=== PATIENT | male | born 1995 | race Caucasian/White ===

== ENCOUNTER 2017-05-06 18:31 | Emergency (ER) | payer MEDICARE, MEDICAID ==
[~2017-05-06] VITALS: Ht 188 cm; Wt 87.5 kg
[~2017-05-06 18:31] MED LIST: ACCUNEB SO1.25 MG/1 INH; ACETAMINOPHEN-1 EAC1 PO; ADVAIR 100-501 EACH INH; ADVAIR 250-501 EACH INH; ADVAIR HFA 115-12 G1 INH; ADVAIR HFA 230M1 AER IH; ADVAIR HFA 230M1 AER INH; ADVAIR HFA 230M12 GM INH; ADVAIR HFA 230M12 GM PO; ADVAIR HFA115 MCG/21 INH; ADVAIR INHALER; ADVAIRDISKUS; ALBUTEROL NEB; ALBUTEROL2.5 MG/0.1 INH; ALBUTEROL2.5 MG/0.5 INH; ALBUTEROL2.5 MG/3 M IH; ALBUTEROL2.5 MG/3 M INH; ALBUTEROL2.5 MG/31 INH; AMOXICILLIN 50500 MG PO; AMOXIL 875 MG875 M1 PO; AUGMENTIN 875875 MG PO; AZITHROMYCIN 2250 MG PO; CENTANY30 GM TP; COMBIVENT INH; DEPAKOTE125 MG PO; DUONEB 2.5-0.5 M3 ML INH; FLEXERIL PO; GENTAMICIN SU3 MG/ML OPHTHALMIC; HYDROCODON-ACE1 EACH PO; HYDROCODONE-APA1 TA1 PO; IBUPROFEN 200200 M1 PO; IBUPROFEN 800800 M1 PO; IBUPROFEN 800800 MG PO; MEDROLDOSEPACK PO; MOBIC7.5 MG PO; NOHOMEMEDICATIONS; ONDANSETRON HCL4 M2 PO; PENICILLIN VK500 M1 PO; PREDNISONE; PREDNISONE 10 M10 M1; PREDNISONE 10 M10 M1 PO; PREDNISONE 10 M10 MG PO; PREDNISONE 20 M20 M1 PO; PREDNISONE 20 M20 MG PO; PREDNISONE50 MG PO; PROAIR HFA8.5 GM IH; PROAIR HFA8.5 GM INH; PROAIR HFA8.5 GM PO; PROMETHAZINE-D120 ML PO; PROTONIX40 M1 PO; PROVENTIL; PROVENTIL HFA6.7 G1 INH; QVAR HFA 880 MCG/UN1 INH; RISPERDAL0.25 MG PO; SINGULAIR 10 MG10 M1 PO; VANTIN PO; VENTOLIN HFA 1818 GM INH; VENTOLIN HFA INH8 GM IH; VENTOLIN HFA INH8 GM PO; ZOFRAN ODT4 MG PO; ZPAK PO
[2017-05-06] MEDS ORDERED: ALBUTEROL2.5 MG/0.5 INH (18:46)
[2017-05-06] MEDS ORDERED: PREDNISONE 20 M20 MG PO (18:46)
[2017-05-06 19:01] VITALS: BP 124/83
== END 2017-05-06 19:02 | disposition home or self-care (01) ==
LOC: M.ERS 18:31
DX: J45.901 Unspecified asthma with (acute) exacerbation (principal); F31.9 Bipolar disorder, unspecified; F90.9 Attention-deficit hyperactivity disorder, unspecified type; G40.909 Epilepsy, unspecified, not intractable, without status epilepticus; F17.210 Nicotine dependence, cigarettes, uncomplicated; F10.99 Alcohol use, unspecified with unspecified alcohol-induced disorder; Z87.442 Personal history of urinary calculi

== ENCOUNTER 2017-06-26 17:25 | Emergency (ER) | payer MEDICARE, MEDICAID ==
[~2017-06-26] VITALS: Ht 188 cm; Wt 87.5 kg
[2017-06-26] MEDS ORDERED: AMOXICILLIN 50500 MG PO (18:22)
[2017-06-26] MEDS ORDERED: ADVAIR HFA 230M12 GM INH (18:22)
[2017-06-26] MEDS ORDERED: VENTOLIN HFA 1818 GM INH (18:22)
[2017-06-26 18:40] VITALS: BP 139/80
== END 2017-06-26 18:41 | disposition home or self-care (01) ==
LOC: M.ERS 17:25
DX: J02.9 Acute pharyngitis, unspecified (principal); J45.901 Unspecified asthma with (acute) exacerbation; F17.210 Nicotine dependence, cigarettes, uncomplicated; F31.9 Bipolar disorder, unspecified; F90.9 Attention-deficit hyperactivity disorder, unspecified type; F10.21 Alcohol dependence, in remission; Z87.442 Personal history of urinary calculi

== ENCOUNTER 2017-08-10 12:54 | Emergency (ER) | payer MEDICARE, MEDICAID ==
[~2017-08-10] VITALS: Ht 188 cm; Wt 85.7 kg
[2017-08-10] MEDS ORDERED: PREDNISONE 20 M20 MG PO (13:47)
[2017-08-10] MEDS ORDERED: ADVAIR HFA 230M12 GM INH (13:47)
[2017-08-10] MEDS ORDERED: VENTOLIN HFA 1818 GM INH ×2 (13:47→14:09)
[2017-08-10 14:09] LABS: INFLUENZA A ANTIGEN None Detected (None Detect); INFLUENZA B ANTIGEN None Detected (None Detect)
[2017-08-10] MEDS ORDERED: ADVAIR HFA 115-12 G1 INH (14:09)
[2017-08-10 14:17] VITALS: BP 127/55
== END 2017-08-10 14:18 | disposition home or self-care (01) ==
LOC: M.ERS 12:54
PROVIDERS: Nurse Practitioner Psychiatric/Mental Health
DX: J45.901 Unspecified asthma with (acute) exacerbation (principal); F31.9 Bipolar disorder, unspecified; F90.9 Attention-deficit hyperactivity disorder, unspecified type; F17.210 Nicotine dependence, cigarettes, uncomplicated

== ENCOUNTER 2017-10-14 13:05 | Emergency (ER) | payer MEDICARE, MEDICAID ==
[~2017-10-14] VITALS: Ht 188 cm; Wt 88.0 kg
[2017-10-14 14:00] LABS: URINE BILIRUBIN NEGATIVE (Negative); URINE BLOOD NEGATIVE (Negative); URINE CLARITY CLEAR; URINE COLOR YELLOW; URINE GLUCOSE-RANDOM NEGATIVE (Negative); URINE KETONES NEGATIVE (Negative); URINE LEUKOCYTES NEGATIVE (Negative); URINE NITRITE NEGATIVE (Negative); URINE PROTEIN NEGATIVE (Negative); URINE SPECIFIC GRAVITY >= 1.030 (1.005-1.030); URINE UROBILINOGEN 0.2 E.U./dl (0.2-1.0)
[2017-10-14 14:11] LABS: ABSOLUTE BASOPHILS 0.1 thou/uL (0.0-0.2); ABSOLUTE EOSINOPHILS 0.5 thou/uL (0.0-0.7); ABSOLUTE LYMPHOCYTES 1.5 thou/uL (0.8-5.3); ABSOLUTE MONOCYTES 0.7 thou/uL (0.0-1.2); ABSOLUTE NEUTROPHILS 5.9 thou/uL (1.6-8.1); BASOPHILS 0.7 %; HEMATOCRIT 49.4 % (42.0-52.0); HEMOGLOBIN 17.4 gm/dL (14.0-18.0); LYMPHOCYTES 17.5 %; MCH 31.9 pg (26.0-34.0); MCHC 35.1 g/dL (28.0-37.0); MCV 90.7 fL (80.0-100.0); MONOCYTES 7.8 %; MPV 8.1 fl. (7.2-11.1); NUCLEATED RBCS 0 /100WBC; PLATELET COUNT* 226 thou/uL (150-400); RBC 5.44 mil/uL (4.50-6.00); RDW-CV 12.9 % (10.5-14.5); WBC 8.6 thou/uL (4.0-11.0)
[2017-10-14 14:57] LABS: POTASSIUM 4.2 mmol/L (3.5-5.1)
[2017-10-14 14:58] LABS: CALCIUM 8.8 mg/dL (8.5-10.1); CREATININE 0.7 mg/dL (0.6-1.3); TOTAL BILIRUBIN 0.8 mg/dL (<0.1-1.0); TOTAL PROTEIN 6.5 g/dL (6.4-8.2)
[2017-10-14] MEDS ORDERED: ALBUTEROL2.5 MG/31 INH (16:26)
[2017-10-14] MEDS ORDERED: MEDROLDOSEPACK PO (16:26)
[2017-10-14] MEDS ORDERED: VENTOLIN HFA 1818 GM INH (16:26)
[2017-10-14] MEDS ORDERED: ADVAIR HFA 230M12 GM INH (16:26)
[2017-10-14] MEDS ORDERED: BENTYL 20 MG TA20 M1 PO (16:26)
[2017-10-14] MEDS ORDERED: ONDANSETRON HCL4 M2 PO (16:26)
[2017-10-14 16:42] VITALS: BP 128/59
== END 2017-10-14 16:42 | disposition home or self-care (01) ==
LOC: M.ERS 13:05
PROVIDERS: Nurse Practitioner Family
DX: J45.901 Unspecified asthma with (acute) exacerbation (principal); R10.31 Right lower quadrant pain; F31.9 Bipolar disorder, unspecified; F90.9 Attention-deficit hyperactivity disorder, unspecified type; F17.210 Nicotine dependence, cigarettes, uncomplicated

== ENCOUNTER 2017-10-28 16:57 | Emergency (ER) | payer MEDICARE ==
[~2017-10-28] VITALS: Ht 188 cm; Wt 88.0 kg
[~2017-10-28 16:57] MED LIST changes: +BENTYL 20 MG TA20 M1 PO
[2017-10-28 18:05] VITALS: BP 117/55
== END 2017-10-28 18:06 | disposition home or self-care (01) ==
LOC: M.ERS 16:57
DX: J02.9 Acute pharyngitis, unspecified (principal); J45.909 Unspecified asthma, uncomplicated; F31.9 Bipolar disorder, unspecified; F90.9 Attention-deficit hyperactivity disorder, unspecified type; F17.210 Nicotine dependence, cigarettes, uncomplicated; Z87.442 Personal history of urinary calculi

== ENCOUNTER 2018-03-18 11:27 | Emergency (ER) | payer MEDICARE ==
[~2018-03-18] VITALS: Ht 188 cm; Wt 93.9 kg
[2018-03-18] MEDS ORDERED: AMOXICILLIN 50500 MG PO (12:42)
[2018-03-18] MEDS ORDERED: PREDNISONE 20 M20 MG PO (12:42)
[2018-03-18] MEDS ORDERED: ALBUTEROL2.5 MG/31 INH (12:54)
[2018-03-18] MEDS ORDERED: VENTOLIN HFA 1818 GM INH (12:54)
[2018-03-18 13:00] VITALS: BP 102/45
== END 2018-03-18 13:02 | disposition home or self-care (01) ==
LOC: M.ERS 11:27
DX: J45.901 Unspecified asthma with (acute) exacerbation (principal); F90.9 Attention-deficit hyperactivity disorder, unspecified type; F31.9 Bipolar disorder, unspecified; F17.210 Nicotine dependence, cigarettes, uncomplicated; Z87.442 Personal history of urinary calculi

== ENCOUNTER 2018-09-12 07:41 | Emergency (ER) | payer MEDICARE ==
[~2018-09-12] VITALS: Ht 188 cm; Wt 92.5 kg
[2018-09-12] MEDS ORDERED: MEDROL DOSPAK21 TA1 PO (08:53)
[2018-09-12] MEDS ORDERED: ZYRTEC10 M2 PO (08:53)
[2018-09-12 08:59] VITALS: BP 121/73
== END 2018-09-12 09:00 | disposition home or self-care (01) ==
LOC: M.ERS 07:41
DX: J45.901 Unspecified asthma with (acute) exacerbation (principal); F31.9 Bipolar disorder, unspecified; F17.210 Nicotine dependence, cigarettes, uncomplicated

== ENCOUNTER 2018-10-17 06:39 | Emergency (ER) | payer MEDICARE ==
[~2018-10-17] VITALS: Ht 188 cm; Wt 97.1 kg
[~2018-10-17 06:39] MED LIST changes: +MEDROL DOSPAK21 TA1 PO; +ZYRTEC10 M2 PO
[2018-10-17] MEDS ORDERED: PREDNISONE 2.52.5 M1 PO (07:01)
[2018-10-17 07:31] LABS: CALCIUM 8.7 mg/dL (8.5-10.1); CREATININE 0.7 mg/dL (0.6-1.3); POTASSIUM 4.2 mmol/L (3.5-5.1)
[2018-10-17 07:36] LABS: ALBUMIN 3.4 g/dL (3.4-5.0); TOTAL BILIRUBIN 0.4 mg/dL (<0.1-1.0); TOTAL PROTEIN 6.3 g/dL (6.4-8.2)
[2018-10-17] MEDS ORDERED: BENTYL 20 MG TA20 M1 PO (07:42)
[2018-10-17] MEDS ORDERED: ZOFRAN ODT4 MG DISSOLVE (07:42)
[2018-10-17 08:05] VITALS: BP 119/74
== END 2018-10-17 08:05 | disposition home or self-care (01) ==
LOC: M.ERS 06:39
PROVIDERS: Emergency Medicine Emergency Medical Services
DX: R11.2 Nausea with vomiting, unspecified (principal); R10.11 Right upper quadrant pain; R10.33 Periumbilical pain; F17.210 Nicotine dependence, cigarettes, uncomplicated; J45.909 Unspecified asthma, uncomplicated; F31.9 Bipolar disorder, unspecified; F90.9 Attention-deficit hyperactivity disorder, unspecified type; Z87.442 Personal history of urinary calculi

== ENCOUNTER 2018-11-16 10:19 | Emergency (ER) | payer MEDICARE ==
[~2018-11-16] VITALS: Ht 188 cm; Wt 94.3 kg
[~2018-11-16 10:19] MED LIST changes: +PREDNISONE 2.52.5 M1 PO; +ZOFRAN ODT4 MG DISSOLVE
[2018-11-16] MEDS ORDERED: ADVAIR HFA 230M12 GM INH ×2 (10:27→11:15)
[2018-11-16 10:50] LABS: HEMATOCRIT 46.4 % (42.0-52.0); HEMOGLOBIN 16.3 gm/dL (14.0-18.0); MCH 30.8 pg (26.0-34.0); MCHC 35.2 g/dL (28.0-37.0); MCV 87.4 fL (80.0-100.0); MPV 7.6 fl. (7.2-11.1); NUCLEATED RBCS 0 /100WBC; PLATELET COUNT* 200 thou/uL (150-400); RBC 5.31 mil/uL (4.50-6.00); RDW-CV 12.5 % (10.5-14.5); WBC 14.8 thou/uL (4.0-11.0)
[2018-11-16 10:59] LABS: ANION GAP 8 mmol/L (7-16); BUN 13 mg/dL (7-18); CHLORIDE 105 mmol/L (98-107); CO2 27 mmol/L (21-32); CREATININE 0.7 mg/dL (0.6-1.3); GLUCOSE 100 mg/dL (70-99); POTASSIUM 3.6 mmol/L (3.5-5.1); SODIUM 140 mmol/L (136-145)
[2018-11-16 11:10] LABS: ALBUMIN 3.7 g/dL (3.4-5.0); ALKALINE PHOSPHATASE 72 U/L (46-116); LIPASE 72 U/L (73-393); NT-PRO BRAIN NAT PEPTIDE 223 pg/mL (<300); SGOT 14 U/L (15-37); SGPT 31 U/L (30-65); TOTAL BILIRUBIN 0.8 mg/dL (<0.1-1.0); TOTAL PROTEIN 6.5 g/dL (6.4-8.2); TROPONIN-I LEVEL <0.06 ng/mL (<0.06)
[2018-11-16] MEDS ORDERED: VENTOLIN HFA 1818 GM INH (11:15)
[2018-11-16] MEDS ORDERED: ALBUTEROL2.5 MG/31 INH (11:15)
[2018-11-16] MEDS ORDERED: MEDROL DOSPAK21 TA1 PO (11:15)
[2018-11-16 11:30] VITALS: BP 139/77
[2018-11-16 11:37] LABS: ABSOLUTE EOSINOPHILS 0.1 thou/uL (0.0-0.7); ABSOLUTE LYMPHOCYTES 0.4 thou/uL (0.8-5.3); ABSOLUTE MONOCYTES 0.3 thou/uL (0.0-1.2); ABSOLUTE NEUTROPHILS 13.9 thou/uL (1.6-8.1); ANISOCYTOSIS 1+; PLATELET ESTIMATE ADEQUATE; POIKILOCYTOSIS 1+
--- NOTE | 2018-11-16 15:18 | EKG ---
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: : 1995 Requested By: Yemi Rizo Order Number: [id number] MD: Ovi Espinoza Measurements Intervals [place] Rate: 79 P: 41 MS: 112 QRS: 76 QRSD: 103 T: 54 QT: 375 QTc: 430 Interpretive Statements Sinus rhythm Borderline short MS interval Compared to ECG 06/27/2015 15:17:37 Sinus tachycardia no longer present Atrial abnormality no longer present Right-axis deviation no longer present Electronically Signed On 11-16-2018 15:17:53 CDT by Ovi Espinoza [email or web address] <ELECTRONICALLY SIGNED> By: Ovi Espinoza MD, [facility] 11/16/18 1517 1023 1023 Ovi Espinoza MD, [facility] /EPI
== END 2018-11-16 11:32 | disposition home or self-care (01) ==
LOC: M.ERS 10:19
PROVIDERS: Emergency Medicine
DX: J45.901 Unspecified asthma with (acute) exacerbation (principal); R07.9 Chest pain, unspecified; R11.10 Vomiting, unspecified; F10.10 Alcohol abuse, uncomplicated; F31.9 Bipolar disorder, unspecified; F90.9 Attention-deficit hyperactivity disorder, unspecified type; F98.8 Other specified behavioral and emotional disorders with onset usually occurring in childhood and adolescence; Z79.899 Other long term (current) drug therapy; Z87.442 Personal history of urinary calculi

== ENCOUNTER 2018-12-08 17:39 | Emergency (ER) | payer MEDICARE ==
[~2018-12-08] VITALS: Ht 188 cm; Wt 88.0 kg
[2018-12-08 20:31] VITALS: BP 126/83
== END 2018-12-08 20:32 | disposition home or self-care (01) ==
LOC: M.ERS 17:39
DX: S51.012A Laceration without foreign body of left elbow, initial encounter (principal); J45.909 Unspecified asthma, uncomplicated; F31.9 Bipolar disorder, unspecified; F90.9 Attention-deficit hyperactivity disorder, unspecified type; Z87.442 Personal history of urinary calculi; Z87.891 Personal history of nicotine dependence; W18.39XA Other fall on same level, initial encounter; Y92.89 Other specified places as the place of occurrence of the external cause; Y93.89 Activity, other specified; Y99.8 Other external cause status

== ENCOUNTER 2019-01-29 14:16 | Emergency (ER) | payer MEDICARE ==
[~2019-01-29] VITALS: Ht 188 cm; Wt 88.5 kg
[2019-01-29 15:19] LABS: ABSOLUTE BASOPHILS 0.1 thou/uL (0.0-0.2); ABSOLUTE EOSINOPHILS 0.4 thou/uL (0.0-0.7); ABSOLUTE LYMPHOCYTES 1.2 thou/uL (0.8-5.3); ABSOLUTE MONOCYTES 0.6 thou/uL (0.0-1.2); ABSOLUTE NEUTROPHILS 4.1 thou/uL (1.6-8.1); BASOPHILS 1.3 %; HEMATOCRIT 48.6 % (42.0-52.0); LYMPHOCYTES 18.5 %; MCH 30.4 pg (26.0-34.0); MCHC 35.1 g/dL (28.0-37.0); MCV 86.7 fL (80.0-100.0); MONOCYTES 9.5 %; MPV 7.9 fl. (7.2-11.1); NUCLEATED RBCS 0 /100WBC; PLATELET COUNT* 239 thou/uL (150-400); POLYS 64.7 %; RDW-CV 12.6 % (10.5-14.5); WBC 6.4 thou/uL (4.0-11.0)
[2019-01-29 15:29] LABS: APTT 28.8 Seconds (25.0-31.3); INR 1.1; PROTIME 10.9 Seconds (9.20-11.50)
[2019-01-29 15:43] VITALS: BP 113/71
== END 2019-01-29 15:43 | disposition home or self-care (01) ==
LOC: M.ERS 14:16
PROVIDERS: Nurse Practitioner Family
DX: R23.3 Spontaneous ecchymoses (principal); J45.909 Unspecified asthma, uncomplicated; F31.9 Bipolar disorder, unspecified; F90.9 Attention-deficit hyperactivity disorder, unspecified type; F17.210 Nicotine dependence, cigarettes, uncomplicated; Z87.442 Personal history of urinary calculi

== ENCOUNTER 2019-02-13 00:39 | Emergency (ER) | payer MEDICARE ==
[~2019-02-13] VITALS: Ht 188 cm; Wt 90.7 kg
[2019-02-13] MEDS ORDERED: ADVAIR 250-501 EACH INH (01:40)
[2019-02-13] MEDS ORDERED: ALBUTEROL2.5 MG/31 INH (01:40)
[2019-02-13] MEDS ORDERED: PREDNISONE50 MG PO (01:40)
[2019-02-13] MEDS ORDERED: PROAIR HFA8.5 GM INH (01:40)
[2019-02-13 01:57] VITALS: BP 139/70
== END 2019-02-13 01:58 | disposition home or self-care (01) ==
LOC: M.ERS 00:39
DX: J45.901 Unspecified asthma with (acute) exacerbation (principal); F31.9 Bipolar disorder, unspecified; F90.9 Attention-deficit hyperactivity disorder, unspecified type; Z87.891 Personal history of nicotine dependence; Z87.442 Personal history of urinary calculi

== ENCOUNTER 2019-04-06 13:58 | Emergency (ER) | payer MEDICARE ==
[~2019-04-06] VITALS: Ht 188 cm; Wt 83.9 kg
[2019-04-06 14:55] LABS: URINE BILIRUBIN 1+ (Negative); URINE BLOOD NEGATIVE (Negative); URINE CLARITY CLOUDY; URINE COLOR STRAW; URINE GLUCOSE-RANDOM NEGATIVE (Negative); URINE KETONES TRACE (Negative); URINE LEUKOCYTES-REFLEX NEGATIVE (Negative); URINE NITRITE-REFLEX NEGATIVE (Negative); URINE PROTEIN NEGATIVE (Negative); URINE SPECIFIC GRAVITY >= 1.030 (1.005-1.030); URINE UROBILINOGEN 0.2 E.U./dl (0.2-1.0)
[2019-04-06 14:56] LABS: ICTOTEST (BILI CONFIRMATORY) Negative (Negative)
[2019-04-06 15:01] LABS: SQUAMOUS NONE SEEN /LPF (0-3)
[2019-04-06 15:02] LABS: AMORPHOUS URATES Many /LPF (None Seen); BACTERIA-REFLEX >30 Many /HPF (None Seen); CASTS None Seen /LPF (None Seen); CRYSTALS None Seen /LPF (None Seen); MUCUS >6 Heavy strn/LPF (None Seen); URINE RBC None Seen /HPF (0-2); URINE WBC-REFLEX 0-5 Rare /HPF (0-5)
[2019-04-06 15:12] LABS: ABSOLUTE EOSINOPHILS 0.3 thou/uL (0.0-0.7); ABSOLUTE LYMPHOCYTES 0.9 thou/uL (0.8-5.3); ABSOLUTE NEUTROPHILS 12.6 thou/uL (1.6-8.1); BASOPHILS 0.3 %; EOSINOPHILS 2.2 %; HEMATOCRIT 52.4 % (42.0-52.0); HEMOGLOBIN 18.2 gm/dL (14.0-18.0); LYMPHOCYTES 6.3 %; MCH 30.8 pg (26.0-34.0); MCHC 34.7 g/dL (28.0-37.0); MONOCYTES 6.7 %; MPV 8.3 fl. (7.2-11.1); NUCLEATED RBCS 0 /100WBC; PLATELET COUNT* 248 thou/uL (150-400); POLYS 84.5 %; RBC 5.89 mil/uL (4.50-6.00); WBC 14.8 thou/uL (4.0-11.0)
[2019-04-06 15:34] LABS: CALCIUM 9.1 mg/dL (8.5-10.1); CREATININE 0.9 mg/dL (0.6-1.3); POTASSIUM 3.8 mmol/L (3.5-5.1)
[2019-04-06 15:38] LABS: ALBUMIN 4.5 g/dL (3.4-5.0); TOTAL BILIRUBIN 1.3 mg/dL (<0.1-1.0)
[2019-04-06] MEDS ORDERED: ONDANSETRON HCL4 M2 PO (15:49)
[2019-04-06] MEDS ORDERED: CIPRO500 MG PO (15:49)
[2019-04-06 16:14] VITALS: BP 123/87
== END 2019-04-06 16:15 | disposition home or self-care (01) ==
LOC: M.ERS 13:58
PROVIDERS: Nurse Practitioner Family
DX: K52.9 Noninfective gastroenteritis and colitis, unspecified (principal); N39.0 Urinary tract infection, site not specified; J45.909 Unspecified asthma, uncomplicated; F31.9 Bipolar disorder, unspecified; F90.9 Attention-deficit hyperactivity disorder, unspecified type; Z87.442 Personal history of urinary calculi; Z87.891 Personal history of nicotine dependence

== ENCOUNTER 2019-09-08 19:55 | Emergency (ER) | payer MEDICARE ==
[~2019-09-08] VITALS: Ht 188 cm; Wt 93.9 kg
[~2019-09-08 19:55] MED LIST changes: +CIPRO500 MG PO
[2019-09-08] MEDS ORDERED: PROAIR HFA8.5 GM INH (21:03)
[2019-09-08] MEDS ORDERED: PREDNISONE50 MG PO (21:03)
[2019-09-08] MEDS ORDERED: ALBUTEROL2.5 MG/31 INH (21:03)
[2019-09-08 21:21] VITALS: BP 146/73
== END 2019-09-08 21:22 | disposition home or self-care (01) ==
LOC: M.ERS 19:55
DX: J45.901 Unspecified asthma with (acute) exacerbation (principal); F31.9 Bipolar disorder, unspecified; F90.9 Attention-deficit hyperactivity disorder, unspecified type; Z87.442 Personal history of urinary calculi; Z87.891 Personal history of nicotine dependence; Z91.048 Other nonmedicinal substance allergy status

== ENCOUNTER 2019-12-01 00:22 | Emergency (ER) | payer MEDICARE ==
[~2019-12-01] VITALS: Ht 188 cm; Wt 83.9 kg
[2019-12-01] MEDS ORDERED: PROAIR HFA8.5 GM INH (01:08)
[2019-12-01] MEDS ORDERED: PREDNISONE50 MG PO (01:08)
[2019-12-01] MEDS ORDERED: ALBUTEROL2.5 MG/31 INH (01:08)
[2019-12-01 01:20] VITALS: BP 137/87
--- NOTE | 2019-12-01 16:44 | EKG ---
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 : 1995 Requested By: Nkechi Gallardo Order Number: [id number] MD: Ovi Espinoza Measurements Intervals [place] Rate: 67 P: 33 MD: 126 QRS: 94 QRSD: 101 T: 37 QT: 396 QTc: 418 Interpretive Statements Sinus rhythm Borderline right axis deviation ST elev, probable normal early repol pattern Baseline wander in lead(s) II Compared to ECG 11/16/2018 10:23:45 ST (T wave) deviation now present Electronically Signed On 12-01-2019 16:43:55 CDT by Ovi Espinoza [email or web address] <ELECTRONICALLY SIGNED> By: Ovi Espinoza MD, [facility] 12/01/19 1643 0037 0037 Ovi Espinoza MD, [facility] /EPI
== END 2019-12-01 01:21 | disposition home or self-care (01) ==
LOC: M.ERS 00:22
DX: J45.901 Unspecified asthma with (acute) exacerbation (principal); F31.9 Bipolar disorder, unspecified; F90.9 Attention-deficit hyperactivity disorder, unspecified type; Z87.442 Personal history of urinary calculi; Z87.891 Personal history of nicotine dependence; Z91.048 Other nonmedicinal substance allergy status

== ENCOUNTER 2020-01-19 22:23 | Emergency (ER) | payer MEDICARE ==
[~2020-01-19] VITALS: Ht 188 cm; Wt 83.9 kg
[2020-01-19] MEDS ORDERED: NAPROSYN500 MG PO (23:45)
[2020-01-19] MEDS ORDERED: CYCLOBENZAPRINE5 MG PO (23:45)
[2020-01-19 23:52] VITALS: BP 132/68
== END 2020-01-19 23:52 | disposition home or self-care (01) ==
LOC: M.ERS 22:23
DX: S46.812A Strain of other muscles, fascia and tendons at shoulder and upper arm level, left arm, initial encounter (principal); J45.909 Unspecified asthma, uncomplicated; Z87.442 Personal history of urinary calculi; Z88.8 Allergy status to other drugs, medicaments and biological substances; Z87.891 Personal history of nicotine dependence; X58.XXXA Exposure to other specified factors, initial encounter; Y93.89 Activity, other specified; Y92.89 Other specified places as the place of occurrence of the external cause; Y99.8 Other external cause status

== ENCOUNTER 2020-04-05 23:32 | Emergency (ER) | payer MEDICARE ==
[~2020-04-05] VITALS: Ht 188 cm; Wt 72.6 kg
[~2020-04-05 23:32] MED LIST changes: +CYCLOBENZAPRINE5 MG PO; +NAPROSYN500 MG PO
[2020-04-06] MEDS ORDERED: IPRAT-ALBUT 0.5-3 ML INH (01:42)
[2020-04-06] MEDS ORDERED: PREDNISONE 10 M10 MG PO (01:42)
[2020-04-06] MEDS ORDERED: NEBULIZER MISCELL (01:42)
[2020-04-06 02:00] VITALS: BP 134/78
== END 2020-04-06 02:01 | disposition home or self-care (01) ==
LOC: M.ERS 23:32
DX: J45.901 Unspecified asthma with (acute) exacerbation (principal); Z20.828 Contact with and (suspected) exposure to other viral communicable diseases; Z87.442 Personal history of urinary calculi; Z87.891 Personal history of nicotine dependence

== ENCOUNTER 2020-04-17 19:49 | Emergency (ER) | payer MEDICARE ==
[~2020-04-17] VITALS: Ht 188 cm; Wt 74.8 kg
[~2020-04-17 19:49] MED LIST changes: +IPRAT-ALBUT 0.5-3 ML INH; +NEBULIZER MISCELL
[2020-04-17] MEDS ORDERED: ALBUTEROL2.5 MG/0.5 INH (21:20)
[2020-04-17] MEDS ORDERED: PREDNISONE 20 M20 MG PO (21:20)
[2020-04-17] MEDS ORDERED: VENTOLIN HFA 1818 GM INH (21:20)
[2020-04-17 21:53] VITALS: BP 133/69
--- NOTE | 2020-04-18 10:44 | EKG ---
[place] [address] ELECTROCARDIOGRAM REPORT Name: YEMI BRITT JR Room: [facility]#: [id number] Admission: 04/17/20 Attend Phys: Discharge: 04/17/20 Date of : [birth year] Date of Service: 04/17/201953 Report #: [id number] THIS REPORT FOR: //name// [facility] ED Test Date: 2020-04-17 Test Time: 19:54:25 Pat Name: YEMI BRITT Department: Room: Gender: Hydrodynamicist: YOSI : 1995 Requested By: Ariana Jackson Order Number: [id number] MD: Ovi Espinoza Measurements Intervals [place] Rate: 73 P: 50 [place]: 126 QRS: 102 QRSD: 99 T: 55 QT: 382 QTc: 421 Interpretive Statements Sinus rhythm Borderline right axis deviation Compared to ECG 12/01/2019 00:37:52 no change Electronically Signed On 04-18-2020 10:44:16 APPLE PICKING SUPERVISOR by Ovi Espinoza [email or web address] <ELECTRONICALLY SIGNED> By: Ovi Espinoza MD, [facility] [id number] Ovi Espinoza MD, [facility] /EPI
== END 2020-04-17 21:54 | disposition home or self-care (01) ==
LOC: M.ERS 19:49
DX: J45.901 Unspecified asthma with (acute) exacerbation (principal); Z87.891 Personal history of nicotine dependence; Z88.8 Allergy status to other drugs, medicaments and biological substances; Z87.442 Personal history of urinary calculi

== ENCOUNTER 2020-05-01 17:38 | Emergency (ER) | payer MEDICARE ==
[~2020-05-01] VITALS: Ht 188 cm; Wt 77.1 kg
[2020-05-01] MEDS ORDERED: ADVAIR 100-501 EACH INH (17:52)
[2020-05-01] MEDS ORDERED: PREDNISONE 10 M10 MG PO (19:35)
[2020-05-01] MEDS ORDERED: ALBUTEROL2.5 MG/0.5 INH (19:35)
[2020-05-01 20:22] VITALS: BP 138/79
== END 2020-05-01 20:22 | disposition home or self-care (01) ==
LOC: M.ERS 17:38
DX: J45.901 Unspecified asthma with (acute) exacerbation (principal); Z87.442 Personal history of urinary calculi; Z88.8 Allergy status to other drugs, medicaments and biological substances

== ENCOUNTER 2020-09-26 05:02 | Emergency (ER) | payer MEDICARE ==
[~2020-09-26] VITALS: Ht 190.5 cm; Wt 77.1 kg
[2020-09-26] MEDS ORDERED: ALBUTEROL2.5 MG/0.5 INH (05:11)
[2020-09-26] MEDS ORDERED: VENTOLIN HFA 1818 GM INH (05:11)
[2020-09-26] MEDS ORDERED: PULMICORT0.5 MG/2 M INH (05:11)
[2020-09-26] MEDS ORDERED: ADVAIR 250-501 EACH INH (05:37)
[2020-09-26 05:44] VITALS: BP 110/70
== END 2020-09-26 05:44 | disposition home or self-care (01) ==
LOC: M.ERS 05:02
DX: J45.909 Unspecified asthma, uncomplicated (principal); Z87.891 Personal history of nicotine dependence; Z87.442 Personal history of urinary calculi

== ENCOUNTER 2021-02-08 14:26 | Emergency (ER) | payer MEDICARE ==
[~2021-02-08] VITALS: Ht 188 cm; Wt 86.2 kg
[~2021-02-08 14:26] MED LIST changes: +PULMICORT0.5 MG/2 M INH
[2021-02-08 14:48] LABS: ABSOLUTE BASOPHILS 0.1 thou/uL (0.0-0.2); ABSOLUTE EOSINOPHILS 0.3 thou/uL (0.0-0.7); ABSOLUTE LYMPHOCYTES 1.2 thou/uL (0.8-5.3); ABSOLUTE MONOCYTES 0.9 thou/uL (0.0-1.2); ABSOLUTE NEUTROPHILS 5.8 thou/uL (1.6-8.1); BASOPHILS 0.9 %; HEMOGLOBIN 19.5 gm/dL (14.0-18.0); LYMPHOCYTES 14.2 %; MCH 32.6 pg (26.0-34.0); MCHC 35.4 g/dL (28.0-37.0); MCV 92.2 fL (80.0-100.0); MONOCYTES 10.5 %; MPV 7.1 fl. (7.2-11.1); NUCLEATED RBCS 0 /100WBC; PLATELET COUNT* 241 thou/uL (150-400); POLYS 70.4 %; RBC 5.97 mil/uL (4.50-6.00); RDW-CV 13.4 % (10.5-14.5); WBC 8.2 thou/uL (4.0-11.0)
[2021-02-08 14:57] LABS: CALCIUM 9.2 mg/dL (8.5-10.1); POTASSIUM 3.6 mmol/L (3.5-5.1)
[2021-02-08 15:02] LABS: ALBUMIN 4.4 g/dL (3.4-5.0); MAGNESIUM 2.4 mg/dL (1.8-2.4); TOTAL BILIRUBIN 1.4 mg/dL (<0.1-1.0); TOTAL PROTEIN 7.9 g/dL (6.4-8.2)
[2021-02-08 16:06] VITALS: BP 137/82
--- NOTE | 2021-02-09 10:21 | EKG ---
[place] [address] ELECTROCARDIOGRAM REPORT Name: YEMI BRITT JR Room: [facility]#: [id number] Admission: 02/08/21 Attend Phys: Discharge: 02/08/21 Date of : [birth year] Date of Service: 02/08/21 1431 Report #: [id number] THIS REPORT FOR: //name// [facility] ED Test Date: 2021-02-08 Test Time: 14:31:31 Pat Name: YEMI BRITT Department: Room: Gender: Millwright Helper: MEDIC STUDENT : 1995 Requested By: Calos Bullock Order Number: [id number] MD: Ovi Espinoza Measurements Intervals [place] Rate: 97 P: 50 NM: 119 QRS: 113 QRSD: 96 T: 56 QT: 337 QTc: 428 Interpretive Statements Sinus rhythm Borderline short NM interval Right axis deviation Compared to ECG 04/17/2020 19:54:25 No significant changes Electronically Signed On 02-09-2021 10:21:30 CDT by Ovi Espinoza [email or web address] <ELECTRONICALLY SIGNED> By: Ovi Espinoza MD, FACC 02/09/21 1021 1431 1431 Ovi Espinoza MD, [facility] /EPI
== END 2021-02-08 16:07 | disposition home or self-care (01) ==
LOC: M.ERS 14:26
PROVIDERS: Physician Assistant
DX: R07.89 Other chest pain (principal); R11.2 Nausea with vomiting, unspecified; F17.210 Nicotine dependence, cigarettes, uncomplicated; J45.909 Unspecified asthma, uncomplicated; F31.9 Bipolar disorder, unspecified; F90.9 Attention-deficit hyperactivity disorder, unspecified type; Z87.442 Personal history of urinary calculi; Z91.048 Other nonmedicinal substance allergy status; Z79.899 Other long term (current) drug therapy

== ENCOUNTER 2021-03-28 13:34 | Emergency (ER) | payer MEDICARE ==
[~2021-03-28] VITALS: Ht 188 cm; Wt 81.7 kg
[2021-03-28] MEDS ORDERED: VENTOLIN HFA 1818 GM INH (14:17)
[2021-03-28] MEDS ORDERED: ALBUTEROL2.5 MG/31 INH (14:17)
[2021-03-28 15:40] VITALS: BP 133/60
== END 2021-03-28 15:45 | disposition home or self-care (01) ==
LOC: M.ERS 13:34
DX: J06.9 Acute upper respiratory infection, unspecified (principal); Z20.822 Contact with and (suspected) exposure to COVID-19; J45.909 Unspecified asthma, uncomplicated; F90.9 Attention-deficit hyperactivity disorder, unspecified type; Z76.0 Encounter for issue of repeat prescription; Z79.899 Other long term (current) drug therapy; Z87.891 Personal history of nicotine dependence; Z91.038 Other insect allergy status

== ENCOUNTER 2021-04-16 23:06 | Emergency (ER) | payer MEDICARE ==
[~2021-04-16] VITALS: Ht 188 cm; Wt 86.2 kg
[2021-04-16 23:51] LABS: INFLUENZA A ANTIGEN Negative (Negative); INFLUENZA B ANTIGEN Negative (Negative)
[2021-04-17] MEDS ORDERED: MEDROLDOSEPACK PO (03:04)
[2021-04-17] MEDS ORDERED: AZITHROMYCIN 2250 MG PO (03:04)
[2021-04-17 03:10] VITALS: BP 136/64
--- NOTE | 2021-04-17 12:26 | EKG ---
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: REFUGIO : 1995 Requested By: Rebeca Bryant Order Number: [id number] MD: Arnold Ricketts Measurements Intervals [place] Rate: 88 P: 63 RI: 122 QRS: 108 QRSD: 106 T: 53 QT: 366 QTc: 443 Interpretive Statements Sinus rhythm Borderline right axis deviation Baseline wander in lead(s) V1,V2 Compared to ECG 02/08/2021 14:31:31 No significant changes Electronically Signed On 04-17-2021 12:25:58 CLINIC SPECIALIST by Arnold Ricketts [email or web address] <ELECTRONICALLY SIGNED> By: Arnold Ricketts MD, FACC 04/17/21 1225 3 Arnold Ricketts MD, FAC /EPI
== END 2021-04-17 03:10 | disposition home or self-care (01) ==
LOC: M.ERS 23:06
PROVIDERS: Personal Emergency Response Attendant
DX: J45.901 Unspecified asthma with (acute) exacerbation (principal); Z20.822 Contact with and (suspected) exposure to COVID-19; F31.9 Bipolar disorder, unspecified; F90.9 Attention-deficit hyperactivity disorder, unspecified type; Z91.048 Other nonmedicinal substance allergy status; Z79.899 Other long term (current) drug therapy; Z87.891 Personal history of nicotine dependence